=== PATIENT | male | born 1980 | race Caucasian/White ===

== ENCOUNTER 2020-04-27 03:12 | Emergency (ER) | payer OTHER ==
[~2020-04-27] VITALS: Ht 180.3 cm; Wt 111.1 kg
[2020-04-27 04:19] LABS: URINE BILIRUBIN NEGATIVE (Negative); URINE BLOOD 3+ (Negative); URINE CLARITY CLEAR; URINE COLOR YELLOW; URINE GLUCOSE-RANDOM* NEGATIVE (Negative); URINE KETONES NEGATIVE (Negative); URINE LEUKOCYTES-REFLEX NEGATIVE (Negative); URINE NITRITE-REFLEX NEGATIVE (Negative); URINE PROTEIN (DIPSTICK) TRACE (Negative); URINE SPECIFIC GRAVITY 1.025 (1.005-1.035); URINE UROBILINOGEN 0.2 E.U./dl (0.2-1.0)
[2020-04-27 04:27] LABS: ABSOLUTE NEUTROPHILS 7.2 thou/uL (1.4-8.2); BASOPHILS 0.6 % (0.0-2.0); EOSINOPHILS 0.8 % (0.0-3.0); HEMATOCRIT 46.6 % (42.0-52.0); HEMOGLOBIN 15.6 gm/dL (14.0-18.0); LYMPHOCYTES 21.3 % (24.0-44.0); MCH 29.1 pg (26.0-34.0); MCHC 33.5 g/dL (28.0-37.0); MCV 86.9 fL (80.0-100.0); MONOCYTES 8.7 % (1.0-8.0); PLATELET COUNT 175 thou/uL (150-400); POLYS 68.6 % (36.0-66.0); RBC 5.37 mil/uL (4.50-6.00); WBC 10.4 thou/uL (4.0-11.0)
[2020-04-27 04:40] LABS: POTASSIUM 3.5 mmol/L (3.5-5.1)
[2020-04-27 04:46] LABS: ALBUMIN 4.1 g/dL (3.4-5.0); TOTAL BILIRUBIN 0.4 mg/dL (0.2-1.0)
[2020-04-27 04:54] LABS: CASTS None Seen /LPF (None Seen); MUCUS 0-3 Light strn/LPF (None Seen); SQUAMOUS None Seen /LPF (0-3)
[2020-04-27 04:55] LABS: BACTERIA-REFLEX None Seen /HPF (None Seen); CRYSTALS None Seen /LPF (None Seen); URINE RBC 0-2 Rare /HPF (0-2); URINE WBC-REFLEX 0-5 Rare /HPF (0-5)
[2020-04-27 05:02] LABS: LARGE PLATELETS SEVERAL
[2020-04-27] MEDS ORDERED: ZOFRAN ODT4 MG PO (05:15)
[2020-04-27] MEDS ORDERED: PERCOCET 5-3251 EACH PO (05:15)
[2020-04-27 05:51] VITALS: BP 146/94
== END 2020-04-27 05:53 | disposition home or self-care (01) ==
LOC: ER 03:12
PROVIDERS: Emergency Medicine
DX: N20.0 Calculus of kidney (principal); R11.2 Nausea with vomiting, unspecified